=== PATIENT | female | born 1990 | race African-American/Black ===

== ENCOUNTER 2016-11-27 09:55 | Emergency (ER) | payer SELFPAY ==
[2016-11-27 10:06] VITALS: BMI 27.3
[2016-11-27 11:26] LABS: URINE APPEARANCE CLEAR; URINE BILIRUBIN NEGATIVE (NEGATIVE); URINE BLOOD NEGATIVE (NEGATIVE); URINE COLOR YELLOW; URINE GLUCOSE (UA) NEGATIVE (NEGATIVE); URINE KETONE 1+ (NEGATIVE); URINE LEUK ESTERASE NEGATIVE (NEGATIVE); URINE NITRITE NEGATIVE (NEGATIVE); URINE UROBILINOGEN NEGATIVE mg/dL (0.2-1.0)
[2016-11-27] MEDS ORDERED: ACETAMINOPHEN 325 MG TABLET (FP) PO ONE (11:26)
[2016-11-27] MEDS ORDERED: ONDANSETRON 4 MG/2 ML VIAL IVPUSH ONE (11:26)
[2016-11-27] MEDS ORDERED: SODIUM CHLORIDE 1,000 ML IV STA (11:26)
[2016-11-27 11:27] LABS: URINE PROTEIN 1+ (NEGATIVE)
[2016-11-27 11:29] LABS: URINE MUCUS RARE; URINE RBC 11 /hpf (0-3); URINE WBC <1 /hpf (3-5)
[2016-11-27] MEDS ORDERED: ACETAMINOPHEN 325 MG TABLET (FP) ONE (11:31)
[2016-11-27] MEDS ORDERED: ONDANSETRON 4 MG/2 ML VIAL ONE (11:31)
--- NOTE | 2016-11-27 11:44 | PDOC ---
History of Present Illness - General Chief Complaint: Nausea/Vomiting Stated Complaint: BODY PAIN, VOMITING Time Seen by Provider: 11/27/16 10:58 History Source: Patient - History of Present Illness Timing/Duration: other Associated Symptoms: reports: fever/chills, nausea/vomiting. denies: chest pain , cough, headaches, shortness of breath Past History - Past Medical History Allergies/Adverse Reactions: Allergies Allergy/AdvReac Type Severity Reaction Status Date / Time No Known Allergies Allergy Verified 11/27/16 10:01 Home Medications: Ambulatory Orders Ciprofloxacin HCl [Cipro] 500 mg PO BID 11/27/16 Other medical history: DENIES - Immunization History Immunization Up to Date: Yes - Psycho/Social/Smoking Cessation Hx Suicidal Ideation: No Smoking History: Never smoked Have you smoked in the past 12 months: No Information on smoking cessation initiated: No Hx Alcohol Use: No Drug/Substance Use Hx: No Substance Use Type: None Review of Systems - Review of Systems Constitutional: Yes: Chills, Fever, Malaise HEENTM: No: Ear Pain, Throat Pain Respiratory: Yes: Shortness of Breath. No: Cough Cardiac (ROS): No: Chest Pain, Lightheadedness, Palpitations ABD/GI: Yes: Nausea, Vomiting. No: Diarrhea, Abdominal cramping : No: Dysuria, Flank Pain, Hematuria *Physical Exam - Vital Signs Last Vital Signs Temp Pulse Resp BP Pulse Ox 102.9 F H 120 H 15 106/61 97 11/27/16 10:02 11/27/16 10:02 11/27/16 10:02 11/27/16 10:02 11/27/16 10:02 - Physical Exam General Appearance: Yes: Appropriately Dressed. No: Apparent Distress HEENT: positive: Normal Voice Neck: positive: Supple Respiratory/Chest: positive: Lungs Clear, Normal Breath Sounds. negative: Respiratory Distress Cardiovascular: positive: S1, S2, Tachycardia Gastrointestinal/Abdominal: positive: Soft. negative: Tender Musculoskeletal: negative: CVA Tenderness Extremity: positive: Normal Inspection Integumentary: positive: Dry, Warm Neurologic: positive: Fully Oriented, Alert, Normal Mood/Affect ED Treatment Course - LABORATORY CBC & Chemistry Diagram: 11/27/16 11:40 11/27/16 11:40 - ADDITIONAL ORDERS Additional order review: Laboratory Results 11/27/16 11:05 Urine Color Yellow Urine Appearance Clear Urine pH 6.0 Urine Protein 1+ H Urine Glucose (UA) Negative Urine Ketones 1+ H Urine Blood Negative Urine Nitrite Negative Urine Bilirubin Negative Urine Urobilinogen Negative Urine RBC 11 Urine WBC <1 Ur Epithelial Cells Rare Urine Mucus Rare Urine HCG, Qual Negative Medical Decision Making - Medical Decision Making 11/27/16 11:41 26-year-old female [facility] she was diagnosed with a "bacterial infection" in abdomen 3 weeks ago while in [place], currently on second week of ciprofloxacin , flew to the [facility] last week and here with generalized body aches with fever, chills, malaise and nausea, vomiting since last night. [facility] abdominal pain has since resolved and no diarrhea, bright red blood per rectum or melena. No MUNOZ , neck stiffness, dizziness, photophobia, CP, SOB, palpitations, leg pain/ swelling See exam ?viral syndrome Currently on cipro for ? colitis on CT 3 weeks ago in [place] Febrile and tachy in ED w/ benign abd and unremarkable exam otherwise -tylenol -IVF -labs including flu -reassess 11/27/16 11:48 11/27/16 11:53 11/27/16 13:25 Labs unremarkable. Pt reports feeling sig better. Rpt vital improved. Dc w/ supportive tx and PMD f/u as needed 11/27/16 13:26 *DC/Admit/Observation/Transfer Diagnosis at time of Disposition: Viral syndrome - Discharge Dispostion Disposition: HOME Condition at time of disposition: Improved - Patient Instructions Printed Discharge Instructions: DI for Viral Syndrome Additional Instructions: You most likely have a viral illness. Your labs and flu were negative. Maintain adequate hydration and take Tylenol or Motrin as needed for pain and/ or fever Return for worsening of symptoms - Post Discharge Activity Work/School Note: Back to School
[2016-11-27 11:49] LABS: MCH 24.6 pg (25.7-33.7); MEAN PLT VOLUME 9.7 fl (7.5-11.1); PLATELET COUNT 276 K/MM3 (134-434); RDW 15.4 % (11.6-15.6)
[2016-11-27 12:13] LABS: ALBUMIN 4.1 g/dl (3.4-5.0); ANION GAP 8 (8-16); CALCIUM 8.8 mg/dL (8.5-10.1); CO2 24 mmol/L (21-32); CREATININE 0.9 mg/dL (0.55-1.02); GLUCOSE,RANDOM 96 mg/dL (74-106); SGOT/AST 14 U/L (15-37); SGPT/ALT 26 U/L (12-78)
[2016-11-27 12:16] LABS: ALK PHOS 60 U/L (45-117); BILIRUBIN,TOTAL 0.3 mg/dL (0.2-1.0); TOT PROT 7.5 g/dl (6.4-8.2)
[2016-11-27 12:50] VITALS: PULSE 89; TEMP 100.4
[2016-11-27 13:07] LABS: BASOPHIL (MANUAL) 0 % (0-2.0); PLATELET ESTIMATE ADEQUATE (NORMAL)
[2016-11-27 13:21] VITALS: BP 105/60
== END 2016-11-27 13:33 | disposition home or self-care (01) ==
LOC: JER 09:55
PROC: 3E033GC Introduction of Other Therapeutic Substance into Peripheral Vein, Percutaneous Approach (ICD-10-PCS; principal; 2016-11-27)
DX: B34.9 Viral infection, unspecified (principal)
CPT/HCPCS: 36415; 80053; 81003; 81015; 83605; 84703; 85025; 87804; 99283-25